=== PATIENT | female | born 1945 | race Caucasian/White ===

== ENCOUNTER 2021-08-20 05:52 | Emergency (ER) | payer OTHER ==
[~2021-08-20] VITALS: Ht 165.1 cm; Wt 62.1 kg
[2021-08-20 06:23] LABS: APPEARANCE,URINE CLOUDY (CLEAR); BILIRUBIN,URINE NEGATIVE (NEGATIVE); COLOR,URINE YELLOW (YELLOW); GLUCOSE, URINE (UA) NEGATIVE (NEGATIVE); KETONES,URINE NEGATIVE (NEGATIVE); LEUKOCYTE ESTERASE ,URINE SMALL (NEGATIVE); NITRATE,URINE NEGATIVE (NEGATIVE); OCCULT BLOOD,URINE NEGATIVE (NEGATIVE); PH,URINE 7.5 (5.0-8.0); PROTEIN,URINE TRACE mg/dL (NEGATIVE)
[2021-08-20 06:34] LABS: BASOPHILS % (AUTO) 0.6 % (0.0-5.0); EOSINOPHILS % (AUTO) 0.6 % (0.0-8.0); HEMATOCRIT 43.2 % (36-48); LYMPHOCYTES % (AUTO) 9.7 % (21.0-51.0); MEAN CORPUSCULAR HEMOGLOBIN 27.7 pg (27.0-33.0); MEAN CORPUSCULAR HGB CONC 31.5 g/dL (32.0-36.0); MONOCYTES % (AUTO) 5.9 % (3.0-13.0); NEUTROPHILS % (AUTO) 82.6 % (40.0-77.0); PLATELET COUNT (AUTO) 477 K/uL (130-400); RED BLOOD CELL COUNT(AUTO) 4.91 MIL/uL (4.00-5.50); WHITE BLOOD COUNT (AUTO) 14.5 K/uL (4.8-10.8)
[2021-08-20 06:37] LABS: AMORPHOUS SEDIMENT,UR Many /LPF (None Seen); BACTERIA,URINE Few /HPF (None Seen); RBC,URINE None Seen /HPF (0-1)
[2021-08-20 06:48] LABS: ALANINE AMINOTRANSFERASE 19 U/L (12-78); ALBUMIN 3.1 g/dL (3.5-5.0); ASPARTATE AMINOTRANSFERASE 19 U/L (10-37); BILIRUBIN,TOTAL 0.5 mg/dL (0.2-1.0); CARBON DIOXIDE 28 mmol/L (21-32); CHLORIDE 101 mmol/L (101-111); CREATININE 0.8 mg/dL (0.5-1.5); GLOMERULAR FILTR. RATE CALC 74 mL/min (>60); GLUCOSE,RANDOM 164 mg/dL (70-105); POTASSIUM 3.9 mmol/L (3.5-5.1); SODIUM SERUM 137 mmol/L (136-145); TOTAL PROTEIN, SERUM 8.2 g/dL (6.0-8.3); UREA NITROGEN, BLOOD 12 mg/dL (7-18)
[2021-08-20 06:57] LABS: LIPASE < 50 U/L (114-286)
[2021-08-20] MEDS ORDERED: FAMOTIDINE 20MG VIAL IV SCH (07:00)
[2021-08-20] MEDS ORDERED: 0.9%NACL 1000ML 1,000 ML IV SCH (07:00)
[2021-08-20] MEDS ORDERED: MORPHINE 2 MG SYG IVP SCH (07:00)
[2021-08-20] MEDS ORDERED: ONDANSETRON 4MG INJ IVP SCH (07:00)
[2021-08-20] MEDS ORDERED: IOHEXOL-350 75 ML VIAL IV ONE (07:29)
[2021-08-20] MEDS ORDERED: UNASYN 3GM VIAL IV SCH (09:00)
[2021-08-20] MEDS ORDERED: AMOX1TAB16 PO (09:04)
[2021-08-20] MEDS ORDERED: ONDA4TAB10 PO (09:04)
[2021-08-20] MEDS ORDERED: TRAM50TA2 PO (09:04)
[2021-08-20] MEDS ORDERED: 0.9%NACL 100ML 100 ML ONE (09:20)
[2021-08-20] MEDS ORDERED: 0.9%NACL 50ML 50 ML IV ONE (09:20)
[2021-08-20 10:11] VITALS: BP 111/61
== END 2021-08-20 10:15 | disposition home or self-care (01) ==
LOC: EDH 05:52
DX: K57.92 Diverticulitis of intestine, part unspecified, without perforation or abscess without bleeding (principal); E86.9 Volume depletion, unspecified
CPT/HCPCS: 36415; 74177; 80053; 81001; 83690; 84484; 85025; 87077; 87088; 87186; 93005; 96361; 96365; 96375; 99285; J0295; J2405; J3490; J7030; Q9967